=== PATIENT | female | born 1950 | race Caucasian/White ===

== ENCOUNTER → 2016-12-21 | Outpatient (CLI) | payer MEDICARE ==
[~2016-12-21] MED LIST: BIOT1000 PO; BOSWELLIA; CALCTAB70 PO; CARA0.5C; CROM4SOL2 EACH EYE; ESTR0.5T PO; FLUT1SPR22; GABA400C5 PO; LEVO-168 PO; LEVO.125 PO; MOBI15TA PO; MULTTAB67 PO; SLOWTAB PO; VITA100T15 PO; VITA500T PO; [UNRECOGNIZED DRUG - CODE] PO; [UNRECOGNIZED DRUG - OTHER]; [UNRECOGNIZED DRUG - OTHER]
[2016-12-21 12:05] LABS: AUTOMATED NEUTROPHIL # 5.4 TH/MM3 (1.8-7.7); BASOPHIL # 0.1 TH/MM3 (0-0.2); BASOPHIL % 0.8 % (0.0-2.0); EOSINOPHIL # 0.2 TH/MM3 (0-0.4); HEMATOCRIT 41.4 % (35.0-46.0); HEMO FLAGS DIFF FINAL; LYMPH % 22.6 % (9.0-44.0); LYMPHOCYTE # 1.8 TH/MM3 (1.0-4.8); MEAN CELL VOLUME 90.9 FL (80.0-100.0); MEAN CORPUSCULAR HEMOGLOBIN 30.2 PG (27.0-34.0); MEAN CORPUSCULAR HGB CONC 33.2 % (32.0-36.0); MONO % 8.5 % (0.0-8.0); NEUT % 66.1 % (16.0-70.0); PLATELET COUNT 238 TH/MM3 (150-450); RED BLOOD COUNT 4.56 MIL/MM3 (4.00-5.30); RED CELL DISTRIBUTION WIDTH 13.5 % (11.6-17.2); WHITE BLOOD COUNT 8.1 TH/MM3 (4.0-11.0)
[2016-12-21 12:09] LABS: BACTERIA, URINE MOD /hpf; BLOOD, URINE NEG (NEG); GLUCOSE,URINE NEG (NEG); KETONE, URINE NEG (NEG); NITRITE,URINE NEG (NEG); PH, URINE 6.5 (5.0-8.5); SQUAMOUS EPITHELIAL CELL URINE 2 /hpf (0-5); URINE COLOR YELLOW (YELLW/STRAW)
[2016-12-21 12:23] LABS: ANION GAP 5 MEQ/L (5-15); BICARBONATE 30.8 MEQ/L (21.0-32.0); BLOOD UREA NITROGEN 11 MG/DL (7-18); CHLORIDE 100 MEQ/L (98-107); GLOMERULAR FILTRATION RATE 99 ML/MIN (>89); GLUCOSE,FASTING 86 MG/DL (74-99); SODIUM (NA) 136 MEQ/L (136-145)
--- NOTE | 2016-12-21 12:45 | RADRPT ---
EXAM DATE/TIME: 12/21/2016 11:56 [facility] COMPARISON: No previous studies available for comparison. INDICATIONS : Evaluate for pneumonia, pneumothorax or communicable disease. Pre op for abdominal surgery. MEDICAL HISTORY : Hypothyroidism. Gastroesophageal reflux disease. Arthritis. CAD. Fibromyalgia. SURGICAL HISTORY : Cholecystectomy. Gastric bypass. Hysterectomy. Left total knee replacement. Angiograms. ENCOUNTER: Initial ACUITY: 1 day PAIN SCORE: 0/10 LOCATION: chest FINDINGS: PA and lateral views of the chest demonstrate the lungs to be symmetrically aerated without evidence of mass, infiltrate or effusion. The cardiomediastinal contours are unremarkable. Osseous structure s are intact. CONCLUSION: No acute disease. Isai Henriquez MD on December 21, 2016 at 12:43 Board Certified Radiologist. This report was verified electronically.
--- NOTE | 2016-12-22 11:16 | EKG ---
Date Performed: 12/21/2016 Time Performed: 11:04:03 PTAGE: 66 years EKG: Sinus rhythm POSSIBLE LEFT ATRIAL ENLARGEMENT LOW QRS VOLTAGE IN PRECORDIAL LEADS BORDERLINE ECG NO PREVIOUS TRACING DOCTOR: Lino Thompson Interpretating Date/Time 12/22/2016 11:15:15
== END ==
LOC: CPRE 10:36
PROVIDERS: ATTEND Obstetrics & Gynecology
DX: Z01.812 Encounter for preprocedural laboratory examination (principal); Z01.810 Encounter for preprocedural cardiovascular examination; Z01.811 Encounter for preprocedural respiratory examination; E55.9 Vitamin D deficiency, unspecified; R94.31 Abnormal electrocardiogram [ECG] [EKG]
CPT/HCPCS: 36415; 71020; 80048; 81001; 82306; 82607; 82746; 85025; 86850; 86900; 86901; 93005

== ENCOUNTER 2016-12-23 05:39 | Observation (INO) | payer MEDICARE ==
--- NOTE | 2016-12-21 17:41 | MH ---
cc: CHRISTIE BATRES MD DATE OF ADMISSION: 12/23/2016 DATE OF : 1950 CHIEF COMPLAINT: Significant stress urinary incontinence with some over active bladder symptomatology. Scheduled procedure is anterior repair with transobturator tape and cystoscopy. She understands that this typically does not address over active bladder that is for stress urinary incontinence. She has had a fairly complicated history. She has had a very distant hysterectomy in 1981. Prior to that she had section. She has undergone a rectovaginal repair of a fistula and partial colon resection in June of 2013. It is not a rectocele at this point that is causing most of her concern but rather a fairly significant cystocele and leakage of urine when she coughs, laughs or sneezes. There is most definitely though an overactive bladder component. SOCIAL HISTORY: She does not smoke, drink or use illicit drugs. She does have chronic constipation. Other additional surgeries are her gastric sleeve procedure and gallbladder in the past. She has hypothyroidism. MEDICATIONS: She takes ____ mics daily. Gabapentin 400 milligrams daily. Estradiol 0.5 milligrams daily. Duloxetine 60 milligrams daily. She is up-to-date on mammography, colonoscopy and bone density scan. PHYSICAL EXAMINATION: Well-developed white female, weight is 177, height 5'3", blood pressure 130/70. ALLERGIES: PENICILLIN. SULFA. She has no thyroid enlargement. Lungs: Clear. Heart: Regular. Breasts: Reassuring. Abdomen: Benign. Perineum is estrogenized. Vault is fairly well elevated. There is a mild apical descent. There is a third degree cystourethrocele with a positive Q-Tip test. Rectovaginal septum is not very thin and does not bulge out on rectal exam. She has no polyps or hemorrhoids of significance. Extremities: Unremarkable. IMPRESSION: At this time, symptomatic cystourethrocele, so the stress incontinence is compounding her overactive bladder. PLAN: The plan is to proceed with an anterior repair and a transobturator tape, and use Myrbetriq at least in the short term if not mcfp for the overactive bladder symptomatology. The risks, benefits, expectations, alternatives have been described in detail and she is scheduled for . MD MAURY Lowery/LALO /5:07 PM /5:22 PM
[~2016-12-23] VITALS: Ht 160 cm; Wt 92.8 kg
[~2016-12-23 05:39] MED LIST changes: -BOSWELLIA; -CARA0.5C; -FLUT1SPR22; -LEVO-168 PO; -MOBI15TA PO; -[UNRECOGNIZED DRUG - OTHER]; -[UNRECOGNIZED DRUG - OTHER]
[2016-12-23] MEDS ORDERED: ceFAZolin 2 GM PREMIX 50 ML IV SCH (06:15)
[2016-12-23 06:17] VITALS: BP 113/77; PULSE 86; RESP 18; TEMP 98.5; O2SAT 96
[2016-12-23] MEDS ORDERED: METOPROLOL TARTRATE 25 MG TAB PO PRN (06:45)
[2016-12-23] MEDS ORDERED: SODIUM CHLORID 0.9% 500 ML IV PRN (06:45)
[2016-12-23] MEDS ORDERED: POVIDONE IODINE 5% (ANTISEPSIS KIT) 4 APPLICATIONS EACH NARE PRN (06:45)
[2016-12-23] MEDS ORDERED: LACTATED RINGER'S 1000 ML IV PRN (06:45)
[2016-12-23] MEDS ORDERED: INSULIN HUMAN REGULAR 1,000 UNITS/10 ML VIAL SQ PRN (06:45)
[2016-12-23] MEDS ORDERED: CHLORHEXIDINE GLUCONATE 2 % 1 PACK (2 CLOTHS) TOPICAL PRN (06:45)
[2016-12-23] MEDS ORDERED: FAMOTIDINE 20 MG/2 ML VIAL ONE (07:02)
[2016-12-23] MEDS ORDERED: APREPITANT 40 MG CAP ONE (07:02)
[2016-12-23] MEDS ORDERED: ACETAMINOPHEN 1000 MG/100 ML VIAL IV ONE (07:02)
[2016-12-23] MEDS ORDERED: BUPIVACAINE/EPINEPHRINE 0.5% 50 ML VIAL ONE (07:08)
[2016-12-23] MEDS ORDERED: ESTROGENS CONJUGATED VAG CREA 15 APPL/30 GM TUBE ONE (07:08)
[2016-12-23] MEDS ORDERED: VASOPRESSIN INJ 20 UNITS/ML VIAL ONE (07:08)
[2016-12-23] MEDS ORDERED: MIDAZOLAM HCL 2 MG/2 ML VIAL ONE (07:11)
[2016-12-23] MEDS: LACTATED RINGER'S 1000 ML INJ 1,000 ML IV SCH (08:48)
[2016-12-23] MEDS ORDERED: fentaNYL CITRATE 250 MCG/5 ML AMP ONE (08:57)
--- NOTE | 2016-12-23 08:57 | PD.OP ---
Operative Report Date of Surgery: December 23, 2016 Preoperative Diagnosis: KRISTI and mild bulge Postoperative Diagnosis: same Procedure: anerior repair with TOT (solyx) and cystourethroscopy Anesthesia: GET Surgeon: Brittany Izquierdo Jd Edwards Consultant(s): Sanam Clements Operation and Findings: Brittany Pedraza MD December 23, 2016 08:57
[2016-12-23] MEDS ORDERED: oxyCODONE/ACETAMINOPHEN 5 MG/325 MG TAB PO PRN (09:00)
[2016-12-23] MEDS ORDERED: diphenhydrAMINE HCL 25 MG CAP PO PRN (09:00)
[2016-12-23] MEDS: SODIUM CHLORIDE 0.9% FLUSH 10 ML FLUSH IV FLUSH SCH ×2 (09:00→21:35)
[2016-12-23] MEDS ORDERED: ONDANSETRON HCL 4 MG/2 ML VIAL IVP PRN (09:00)
[2016-12-23] MEDS ORDERED: ZOLPIDEM TARTRATE 5 MG TAB PO PRN (09:00)
[2016-12-23] MEDS ORDERED: SODIUM CHLORIDE 0.9% FLUSH 10 ML FLUSH IV FLUSH PRN (09:00)
[2016-12-23] MEDS ORDERED: IBUPROFEN 600 MG TAB PO PRN (09:00)
--- NOTE | 2016-12-23 09:41 | HHI.DCPOC ---
Discharge Care Plan Report Symptoms to Your Doctor -Temperate above 100.5 degrees -Redness, of incision or excessive or foul smelling drainage -Unusual pain or calf pain -Increased vaginal bleeding -Painful or difficulty urinating -Feelings of extreme sadness or anxiety after 2 weeks Goals to Promote Your Health * To prevent worsening of your condition and complications * To maintain your health at the optimal level Directions to Meet Your Goals Take your medications as prescribed Follow your dietary instruction Follow activity as directed Ensure plenty of rest for recovery Drink fluids for hydration Keep your appointments as scheduled Take your immunizations and boosters as scheduled If your symptoms worsen call your PCP, if no PCP go to Urgent Care Center or Emergency Room Smoking is Dangerous to Your Health. Avoid second hand smoke Call the 24-hour crisis hotline for domestic abuse at Brittany Izquierdo MD December 23, 2016 09:41
[2016-12-23] MEDS ORDERED: LEVOTHYROXINE SODIUM 125 MCG TAB PO ONE (11:00)
--- NOTE | 2016-12-23 11:45 | MP ---
cc: GETACHEWBRITTANY MARTINEZ DATE OF 1950 DATE OF PROCEDURE December 23, 2016 PREOPERATIVE DIAGNOSES 1. Unacceptable stress urinary incontinence. 2. Mild overactive bladder. 3. Second-degree cystourethrocele. POSTOPERATIVE DIAGNOSES 1. Unacceptable stress urinary incontinence. 2. Mild overactive bladder. 3. Second-degree cystourethrocele. PROCEDURE 1. Transobturator tape using Solyx. 2. Classic anterior colporrhaphy with Ebony plication. 3. Cystourethroscopy. SURGEON MD Timbo CLAIM ANALYST Sanam Clements, third year medical student. FINDINGS Examination under anesthesia reveals a moderate cystocele and in the office she had a very positive Q-tip test. The apex of the vault is well elevated and, having had a repair for rectovaginal fistula three years ago, the posterior vault has no defect. The tissue is fairly well estrogenized. Subsequent to the tape placement the bladder was evaluated and there is no evidence of the iatrogenic injury or intrinsic pathology. There was ureteral flow from both right and left. The Putnam was replaced after the Ebony plication and anterior colporrhaphy. The skin was slightly trimmed, reapproximated and Estrace cream placed in the vault. Sponge, instrument and needle count were correct. Estimated blood loss was 50 cc. PROCEDURE The patient was identified as Ana Hernandez in [facility]. The procedure was reviewed, permits were checked. She was taken to the operating room, placed under general anesthesia in dorsal lithotomy position. Sequential stockings were on. She had received 1 gram of Ancef. She was prepped and draped in the usual sterile fashion and then the Putnam catheter placed sterilely. A time-out was performed with all in attendance and then the midline vaginal vault was instilled with Marcaine with epi and then the Bovie used to incise the midline. The vaginal mucosa was dissected off the bladder and urethra with some difficulty due to prior surgery but it was possible to reach underneath the pubic symphysis toward the axilla on either side and create a space for the transobturator tape. Using the Solyx system, a diaphragm tape was placed first on the patient's right, then left, against the urethra but without tension. Bleeding was negligible. At this point then the 70-degree scope was placed in the bladder with the findings as noted above and then the Putnam catheter replaced. Several mattress sutures were then placed and then the vaginal mucosa was trimmed slightly and reapproximate with interrupteds of Vicryl. Estrace vaginal cream was placed in the vault but no packing was placed. She was returned to dorsal supine position, awoken and taken to the recovery room in stable condition. Brittany Izquierdo MD PPC/SSB /9:01 AM /11:30 AM
[2016-12-23 12:00] VITALS: BP 113/75; PULSE 78; RESP 16; TEMP 97.7; O2SAT 97
[2016-12-23] MEDS ORDERED: ePHEDrine/NS 25 MG/5 ML SYR IV ONE (12:00)
[2016-12-23] MEDS ORDERED: NEOSTIGMINE 3 MG/3 ML SYR IV ONE (12:00)
[2016-12-23] MEDS ORDERED: PHENYLEPH/NS 1000 MCG/10 ML SYR IV ONE (12:00)
[2016-12-23] MEDS ORDERED: ONDANSETRON HCL 4 MG/2 ML VIAL IV PUSH ONE (12:00)
[2016-12-23] MEDS ORDERED: PROPOFOL 200 MG/20 ML AMP IV ONE (12:00)
[2016-12-23] MEDS: DOCUSATE SODIUM 100 MG CAP PO SCH ×2 (12:12→21:34)
[2016-12-23] MEDS: ACETAMINOPHEN/HYDROcodone 325 MG/5 MG TAB PO PRN ×3 (12:12→21:48)
[2016-12-23] MEDS ORDERED: GABAPENTIN 400 MG CAP PO SCH (13:00)
[2016-12-23] MEDS: GABAPENTIN 400 MG CAP PO SCH ×2 (14:01→21:34)
[2016-12-23 16:00] VITALS: BP 96/64; PULSE 81; RESP 16; TEMP 96.2; O2SAT 96
--- NOTE | 2016-12-23 18:50 | HHI.PR ---
Subjective Remarks Doing well, pain is well controlled, eating well. Objective Vital Signs Vital Signs Date Time Temp Pulse Resp B/P Pulse Ox O2 Delivery O2 Flow Rate FiO2 12/23/16 16:00 96.2 81 16 96/64 96 12/23/16 12:00 97.7 78 16 113/75 97 12/23/16 11:15 97.6 86 16 117/60 96 Room Air 12/23/16 11:00 89 14 108/56 98 12/23/16 10:30 88 12 103/61 98 12/23/16 10:15 82 14 109/62 99 12/23/16 10:00 86 14 105/62 99 12/23/16 09:45 76 14 103/57 99 12/23/16 09:30 79 15 106/55 100 12/23/16 09:15 80 16 100/54 98 12/23/16 09:00 79 20 112/70 100 Nasal Cannula 2 12/23/16 06:17 98.5 86 18 113/77 96 I/O 12/22/16 12/22/16 12/22/16 12/23/16 12/23/16 12/23/16 07:00 15:00 23:00 07:00 15:00 23:00 Intake Total 240 ml 904 ml Output Total 1907 ml Balance -1667 ml 904 ml Intake Oral 240 ml IV Total 904 ml Output Urine Total 1907 ml Objective Remarks Chest is clear, regular rate and rhythm. Abdomen is soft and non-distended. no CVAT urine clear peripad has moderate bleeding. Ext no CCE. A/P Assessment and Plan Night of surgery Doing well home in am post voiding trial if passes no wilson, if fails home with wilson and care instructions return to office tuesday for maren to do voiding trial if wilson left otherwise in two weeks Brittany Izquierdo MD December 23, 2016 18:50
[2016-12-23 20:55] VITALS: BP 93/58; PULSE 40; RESP 16; TEMP 97.1; O2SAT 95
[2016-12-24 00:55] VITALS: BP 101/62; PULSE 71; RESP 16; TEMP 96.3; O2SAT 96
[2016-12-24] MEDS: ACETAMINOPHEN/HYDROcodone 325 MG/5 MG TAB PO PRN ×2 (03:05→08:45)
[2016-12-24] MEDS: LACTATED RINGER'S 1000 ML INJ 1,000 ML IV SCH ×2 (03:13→03:14)
[2016-12-24 04:55] VITALS: BP 105/67; PULSE 67; RESP 15; TEMP 96.9; O2SAT 96
[2016-12-24 06:58] LABS: AUTOMATED NEUTROPHIL # 4.1 TH/MM3 (1.8-7.7); BASOPHIL # 0.1 TH/MM3 (0-0.2); BASOPHIL % 0.8 % (0.0-2.0); EOSINOPHIL # 0.3 TH/MM3 (0-0.4); EOSINOPHIL % 3.6 % (0.0-4.0); HEMATOCRIT 37.4 % (35.0-46.0); HEMO FLAGS DIFF FINAL; LYMPH % 29.6 % (9.0-44.0); LYMPHOCYTE # 2.2 TH/MM3 (1.0-4.8); MEAN CELL VOLUME 92.1 FL (80.0-100.0); MEAN CORPUSCULAR HEMOGLOBIN 30.8 PG (27.0-34.0); MEAN CORPUSCULAR HGB CONC 33.5 % (32.0-36.0); MONO % 9.1 % (0.0-8.0); NEUT % 56.9 % (16.0-70.0); PLATELET COUNT 207 TH/MM3 (150-450); RED BLOOD COUNT 4.07 MIL/MM3 (4.00-5.30); RED CELL DISTRIBUTION WIDTH 13.4 % (11.6-17.2); WHITE BLOOD COUNT 7.3 TH/MM3 (4.0-11.0)
[2016-12-24 07:00] VITALS: BP 119/76; PULSE 74; RESP 15; TEMP 96.3; O2SAT 94
[2016-12-24 07:28] LABS: BICARBONATE 33.2 MEQ/L (21.0-32.0); POTASSIUM 4.2 MEQ/L (3.5-5.1)
[2016-12-24] MEDS: SODIUM CHLORIDE 0.9% FLUSH 10 ML FLUSH IV FLUSH SCH (08:43)
[2016-12-24] MEDS: GABAPENTIN 400 MG CAP PO SCH (08:44)
[2016-12-24] MEDS: DOCUSATE SODIUM 100 MG CAP PO SCH (08:45)
[2016-12-24] MEDS ORDERED: ESTRADIOL 1 MG TAB PO SCH (09:00)
--- NOTE | 2016-12-24 09:17 | HHI.PR ---
Subjective Remarks Doing well, pain is well controlled, eating well. Passing flatus. Passed voiding trial Objective Vital Signs Vital Signs Date Time Temp Pulse Resp B/P Pulse Ox O2 Delivery O2 Flow Rate FiO2 12/24/16 07:00 96.3 74 15 119/76 94 12/24/16 04:55 96.9 67 15 105/67 96 12/24/16 00:55 96.3 71 16 101/62 96 12/23/16 20:55 97.1 40 16 93/58 95 12/23/16 16:00 96.2 81 16 96/64 96 12/23/16 12:00 97.7 78 16 113/75 97 12/23/16 11:15 97.6 86 16 117/60 96 Room Air 12/23/16 11:00 89 14 108/56 98 12/23/16 10:30 88 12 103/61 98 12/23/16 10:15 82 14 109/62 99 12/23/16 10:00 86 14 105/62 99 12/23/16 09:45 76 14 103/57 99 12/23/16 09:30 79 15 106/55 100 I/O 12/23/16 12/23/16 12/23/16 12/24/16 12/24/16 12/24/16 07:00 15:00 23:00 07:00 15:00 23:00 Intake Total 240 ml 1624 ml 480 ml Output Total 1907 ml 2420 ml 500 ml Balance -1667 ml 1624 ml -1940 ml -500 ml Intake Oral 240 ml 720 ml 480 ml IV Total 904 ml Output Urine Total 1907 ml 2420 ml 500 ml # Sanitary Pads 2 Pads Result Diagram: 12/24/16 0554 12/24/16 0554 Objective Remarks Chest is clear, regular rate and rhythm. Abdomen is soft and non-distended. no CVAT urine clear spotting. Ext no CCE. A/P Assessment and Plan POD 1 AP repair and tot doing well, passed voiding trial home today, f/u in 2 wk Iris Harris MD December 24, 2016 09:17 Iris Harris MD December 24, 2016 09:17
[2016-12-24 11:00] VITALS: BP 107/78; PULSE 78; RESP 15; TEMP 96.3; O2SAT 93
[2017-01-12] MEDS ORDERED: LEVO-168 PO (16:19)
== END 2016-12-24 11:40 | disposition home or self-care (01) ==
LOC: HSDC 05:39 → HSDI 08:55 → HOCA 11:30
PROVIDERS: ADMIT Obstetrics & Gynecology; ATTEND Obstetrics & Gynecology
DX: N39.3 Stress incontinence (female) (male) (principal); N32.81 Overactive bladder; N99.3 Prolapse of vaginal vault after hysterectomy; E03.9 Hypothyroidism, unspecified; K59.09 Other constipation; E78.5 Hyperlipidemia, unspecified; E55.9 Vitamin D deficiency, unspecified
CPT/HCPCS: 00860; 57240; 57288; 80048; 85025; 94150; C1771; G0378; J0131; J0690; J2250; J2370; J2405; J2710; J3010; J7120; J8501

== ENCOUNTER 2016-12-27 12:05 | Emergency (ER) | payer MEDICARE ==
[~2016-12-27] VITALS: Ht 160 cm; Wt 87.1 kg
[2016-12-27 12:07] VITALS: BP 121/86; PULSE 78; RESP 16; TEMP 98.1; O2SAT 98
[2016-12-27] MEDS ORDERED: SODIUM CHLORIDE 0.9% FLUSH 10 ML FLUSH IVF PRN (12:45)
[2016-12-27 12:49] LABS: AUTOMATED NEUTROPHIL # 6.3 TH/MM3 (1.8-7.7); BASOPHIL # 0.2 TH/MM3 (0-0.2); BASOPHIL % 2.5 % (0.0-2.0); EOSINOPHIL # 0.2 TH/MM3 (0-0.4); EOSINOPHIL % 2.1 % (0.0-4.0); HEMATOCRIT 41.3 % (35.0-46.0); HEMO FLAGS DIFF FINAL; LYMPH % 18.6 % (9.0-44.0); LYMPHOCYTE # 1.7 TH/MM3 (1.0-4.8); MEAN CELL VOLUME 90.2 FL (80.0-100.0); MEAN CORPUSCULAR HEMOGLOBIN 30.3 PG (27.0-34.0); MEAN CORPUSCULAR HGB CONC 33.7 % (32.0-36.0); MONO % 5.8 % (0.0-8.0); PLATELET COUNT 244 TH/MM3 (150-450); RED BLOOD COUNT 4.58 MIL/MM3 (4.00-5.30); RED CELL DISTRIBUTION WIDTH 13.1 % (11.6-17.2); WHITE BLOOD COUNT 8.9 TH/MM3 (4.0-11.0)
[2016-12-27 12:58] LABS: CHLORIDE 99 MEQ/L (98-107); SODIUM (NA) 135 MEQ/L (136-145)
[2016-12-27 13:01] LABS: ANION GAP 8 MEQ/L (5-15); BLOOD UREA NITROGEN 10 MG/DL (7-18)
[2016-12-27 13:02] LABS: APTT (PATIENT) 27.8 SEC (24.3-30.1); INTERNATIONAL NORMALIZED RATIO 0.9 RATIO; PROTHROMBIN TIME - PATIENT 10.3 SEC (9.8-11.6)
[2016-12-27 13:04] LABS: ALT (GPT) 25 U/L (10-53); AST (GOT) 46 U/L (15-37); GLOMERULAR FILTRATION RATE 89 ML/MIN (>89)
[2016-12-27 13:06] LABS: TOTAL BILIRUBIN ADULT 0.4 MG/DL (0.2-1.0)
[2016-12-27 13:07] LABS: ALKALINE PHOSPHATASE 123 U/L (45-117)
--- NOTE | 2016-12-27 13:20 | RADHPO ---
EXAM DATE/TIME: 12/27/2016 13:00 [facility] COMPARISON: No previous studies available for comparison. INDICATIONS : Left knee pain after fall. MEDICAL HISTORY : None. SURGICAL HISTORY : Total knee replacement, left. ENCOUNTER: Initial ACUITY: 1 day PAIN SCORE: 7/10 LOCATION: Left anterior knee FINDINGS: A standard 4 view examination of the left knee was obtained and demonstrates the patient is status po st arthroplasty. The femoral and tibial components are intact and in normal alignment. There are post operative changes involving the patella. There is no acute fracture. No focal soft tissue abnormality is identified. CONCLUSION: 1. No acute fracture or malalignment. 2. Status post arthroplasty. Shane Bourgeois MD on December 27, 2016 at 13:16 Board Certified Radiologist. This report was verified electronically.
--- NOTE | 2016-12-27 13:21 | RADHPO ---
EXAM DATE/TIME: 12/27/2016 13:03 [facility] COMPARISON: No previous studies available for comparison. INDICATIONS : Left hip pain after falling MEDICAL HISTORY : SURGICAL HISTORY : None. ENCOUNTER: Initial ACUITY: 1 day PAIN SCORE: 7/10 LOCATION: Left lateral hip FINDINGS: Examination of the left hip was performed with AP Pelvis. The primary and secondary trabecular patte rn of the femoral neck is intact. The hip joint is of normal width without significant sclerosis or bony hypertrophy. The acetabulum is grossly intact. CONCLUSION: Negative trauma study. Shane Bourgeois MD on December 27, 2016 at 13:18 Board Certified Radiologist. This report was verified electronically.
[2016-12-27 13:39] VITALS: O2SAT 98
--- NOTE | 2016-12-27 13:46 | RADHPO ---
EXAM DATE/TIME: 12/27/2016 13:16 [facility] COMPARISON: No previous studies available for comparison. INDICATIONS : Fall. Left frontal soft tissue swelling. RADIATION DOSE: 64.24 CTDIvol (mGy) MEDICAL HISTORY : None SURGICAL HISTORY : section. Cholecystectomy.Hysterectomy.Gastric bypass. ENCOUNTER: Initial ACUITY: 1 day PAIN SCALE: 5/10 LOCATION: Left frontal TECHNIQUE: Multiple contiguous axial images were obtained of the head. Using automated exposure control and adj ustment of the mA and/or kV according to patient size, radiation dose was kept as low as reasonably a chievable to obtain optimal diagnostic quality images. FINDINGS: CEREBRUM: The ventricles are normal for age. No evidence of midline shift, mass lesion, hemorrhage or acute in farction. No extra-axial fluid collections are seen. POSTERIOR FOSSA: The cerebellum and brainstem are intact. The 4th ventricle is midline. The cerebellopontine angle i s unremarkable. EXTRACRANIAL: The visualized portion of the orbits is intact. SKULL: The calvaria is intact. No evidence of skull fracture. There is soft tissue swelling over the left f rontal bone. CONCLUSION: Soft tissue swelling over the left frontal bone with no evidence of fracture or hemorrhage. Shane Bourgeois MD on December 27, 2016 at 13:44 Board Certified Radiologist. This report was verified electronically.
--- NOTE | 2016-12-27 13:47 | RADHPO ---
EXAM DATE/TIME: 12/27/2016 13:16 [facility] COMPARISON: No previous studies available for comparison. INDICATIONS : Fall. Pain. RADIATION DOSE: 25.68 CTDIvol (mGy) MEDICAL HISTORY : None SURGICAL HISTORY : section. Cholecystectomy.Hysterectomy.Gastric bypass ENCOUNTER: Initial ACUITY: 1 day PAIN SCORE: 4/10 LOCATION: facial TECHNIQUE: Volumetric scanning of the facial bones was performed. Using automated exposure control and adjustme nt of the mA and/or kV according to patient size, radiation dose was kept as low as reasonably achiev able to obtain optimal diagnostic quality images. FINDINGS: ORBITS: The orbital and infraorbital osseous structures are intact. The retroconal structures have a normal configuration. No radiopaque foreign bodies are seen. NASAL BONE: The nasal bone and maxillary spine are intact ZYGOMATIC ARCHES: Symmetric without evidence of fracture. SINUSES: The maxillary, ethmoid and frontal sinuses are intact. No air-fluid levels seen. NASAL CAVITY: The nasal septum is intact and midline. The lacrimal ducts are intact. SOFT TISSUES: No radiopaque foreign bodies seen. There is soft tissue swelling of the left frontal bone. INTRACRANIAL: No intracranial air seen. CRIBIFORM PLATE: Grossly intact. CONCLUSION: 1. Soft tissue swelling over the left frontal bone with no evidence of fracture. 2. The facial bones are intact in appearance. Shane Bourgeois MD on December 27, 2016 at 13:45 Board Certified Radiologist. This report was verified electronically.
--- NOTE | 2016-12-27 14:14 | RADHPO ---
EXAM DATE/TIME: 12/27/2016 13:16 [facility] COMPARISON: No previous studies available for comparison. INDICATIONS : Fall. Pain. RADIATION DOSE: 26.09 CTDIvol (mGy) MEDICAL HISTORY : None SURGICAL HISTORY : section. Cholecystectomy.Hysterectomy.Gastric bypass. ENCOUNTER: Initial ACUITY: 1 day PAIN SCALE: 5/10 LOCATION: neck TECHNIQUE: Volumetric scanning of the cervical spine was performed. Multiplanar reconstructions in the sagittal, coronal and oblique axial planes were performed. Using automated exposure control and adjustment o f the mA and/or kV according to patient size, radiation dose was kept as low as reasonably achievable to obtain optimal diagnostic quality images. FINDINGS: VERTEBRAE: No fracture is identified. ALIGNMENT: There is 3 mm of anterolisthesis of C3 on C4. Craniocervical junction and C1-C2 level demonstrate no acute finding. C2-C3: There is severe right facet arthrosis causing severe right neural foraminal narrowing. No canal steno sis or left neural foraminal narrowing is present. C3-C4: There is decreased disc height with minimal anterolisthesis. Severe right and mild left facet arthros is is present and there are right uncovertebral osteophytes. There is also a small central disc protr usion. No canal stenosis is present. There is severe right neural foraminal narrowing. C4-C5: There is severe right and mild left neural foraminal stenosis with fusion of the right facet joints. Endplate osteophytes are present anteriorly. A small central disc protrusion is present. There is no spinal canal stenosis or left neural foraminal narrowing. There is moderate right neural foraminal st enosis. C5-C6: There is decreased disc height with endplate osteophytes anteriorly and moderate to severe right face t arthrosis. There are also small bilateral uncovertebral osteophytes. Small posterior disc osteophyt e complex is present. There is no spinal canal stenosis but there is severe right neural foraminal na rrowing and mild left neural foraminal narrowing. C6-C7: There is decreased disc height with endplate osteophytes anteriorly and diffuse posterior disc osteop hyte complex. No canal stenosis or neural foraminal narrowing is seen. C7-T1: No disc herniation, canal stenosis, or neural foraminal stenosis is visualized. Visualized paraspinous structures demonstrate no acute finding. CONCLUSION: 1. No fracture or acute abnormality is identified. 2. 3 mm of anterolisthesis of C3 on C4 secondary to facet arthrosis. 3. Severe degenerative disc disease at C3-C4 through C6-C7. 4. Severe right facet arthrosis at C2-C3 through C5-C6. There is moderate to severe neural foraminal stenosis at all of these levels. Liang Stubbs MD on December 27, 2016 at 14:07 Board Certified Radiologist. This report was verified electronically.
--- NOTE | 2016-12-27 14:38 | PD ---
HPI Chief Complaint: Syncope/Near-Syncope Time Seen by Provider: 12:18 Travel History International Travel<30 days: No Contact w/Intl Traveler<30days: No Traveled to known affect area: No History of Present Illness HPI Patient is a 66-year-old female who comes in after syncopal episode today. She recently had bladder surgery and was discharged with prescriptions for pain medicine. She says she took one late last night, after not eating or drinking very much all day. She says she then got very hot all over, and went to take a Benadryl, but when she went to get water she passed out. She then slipped on the water and hit her head. She is complaining of pain to her head as well as her left hip and knee. She denies having any chest pain or shortness of breath. She says this has never happened before. She is concerned that she damaged her head and that is why she came in. She believes she probably passed out due to the pain medicine. PFSH Past Medical History Arthritis: Yes Cancer: No Cardiovascular Problems: No Diabetes: No Endocrine: No Gastrointestinal Disorders: Yes Glaucoma: No Genitourinary: No Hepatitis: No Hiatal Hernia: No Hypertension: No Immune Disorder: Yes (POSSIBLE LUPUS) Medical other: Yes (ARTHRITIS) Musculoskeletal: Yes (DISLOCATION IN R ARM,SHOULDER ) Neurologic: Yes (NERVE PAIN IN L ARM AND R SHOULDER, NECK PAIN) Psychiatric: No Reproductive: No Respiratory: No Thyroid Disease: Yes ?: Not : 2 Para: 2 Ovarian Cysts: Yes Tubal Ligation: Yes Past Surgical History Body Medical Devices: GASTRIC SLEEVE Section: Yes (2 C- SECTIONS) Gynecologic Surgery: Yes (2 C-SECTIONS, D&C, HYSTERECTOMY,) Hysterectomy: Yes (80S) Joint Replacement: Yes (L TOTAL KNEE) Pacemaker: No Thoracic Surgery: Yes (BREAST IMPLANTS) Social History Alcohol Use: Yes (1 DRINK A WEEK WINRE OR BEER) Tobacco Use: No Substance Use: No Allergies-Medications (Allergen,Severity, Reaction): Coded Allergies: Latex (Verified Allergy, Intermediate, Blisters , 12/27/16) Penicillin (Verified Allergy, Intermediate, Rash, 12/27/16) Rash all over Sulfa (Verified Allergy, Intermediate, Rash, 12/27/16) Rash all over Uncoded Allergies: Nail gel (Allergy, Intermediate, rash - red diffuse then solid, 01/09/10) Reported Meds & Prescriptions Reported Meds & Active Scripts Active Gabapentin 400 Mg Cap 3 Tab PO BID Synthroid (Levothyroxine Sodium) 125 Mcg Tab 125 Mcg PO DAILY Dispense Brand Name Synthroid Reported Vitamin C (Ascorbic Acid) 500 Mg Tab 500 Mg PO TID Boswellia Carmelina Extract (Boswellia Carmelina Extract (Bul) 1 Pow Pow Unknown Dose PO DAILY Cromolyn Opth Drops 4% Soln 1 Drop EACH EYE Q6H Calcium 600 + D (Calcium Carbonate-Vitamin D) 600-400 Mg-Unit Tab 1 Tab PO BID Slow-Mag (Magnesium Chloride-Calcium Carbonate) 71.5-119 Mg Tab 1 Tab PO DAILY Vitamin B12 (Cyanocobalamin) 100 Mcg Tab 100 Mcg PO DAILY Multiple Vitamin 1 Tab 1 Tab PO DAILY Biotin 1,000 Mcg Tab 1,000 Mg PO Estradiol 0.5 Mg Tab 0.5 Mg PO DAILY Review of Systems Except as stated in HPI: all other systems reviewed are Neg General / Constitutional: No: Fever, Chills Eyes: No: Blurred Vision HENT: Positive: Headaches, No: Lightheadedness Cardiovascular: No: Chest Pain or Discomfort Respiratory: No: Shortness of Breath Gastrointestinal: No: Nausea, Vomiting Musculoskeletal: Positive: Pain Skin: No Rash, No Change in Pigmentation Neurologic: No: Weakness, Dizziness Physical Exam Narrative GENERAL: Awake and alert, in no acute distress. SKIN: Focused skin assessment warm/dry. HEAD: Atraumatic. Normocephalic. Hematoma to the left side of forehead. EYES: Pupils equal and round. No scleral icterus. Extraocular movements intact. ENT: Mucous membranes pink and moist. NECK: Trachea midline. No JVD. No cervical spine tenderness. CARDIOVASCULAR: Regular rate and rhythm. No murmur appreciated. RESPIRATORY: No accessory muscle use. Clear to auscultation. Breath sounds equal bilaterally. GASTROINTESTINAL: Abdomen soft, non-tender, nondistended. MUSCULOSKELETAL: No obvious deformities. No clubbing. No cyanosis. No edema. Tender to palpation of the left hip as well as the left knee. Full range of motion of the hip and knee. NEUROLOGICAL: Awake and alert. No obvious cranial nerve deficits. Motor grossly within normal limits. Normal speech. PSYCHIATRIC: Appropriate mood and affect; insight and judgment normal. Data Data Last Documented VS Vital Signs Date Time Temp Pulse Resp B/P Pulse Ox O2 Delivery O2 Flow Rate FiO2 12/27/16 14:57 84 18 119/84 98 Room Air 12/27/16 12:07 98.1 Orders Electrocardiogram (12/27/16 12:33) Complete Blood Count With Diff (12/27/16 12:33) Comprehensive Metabolic Panel (12/27/16 12:33) Troponin I (12/27/16 12:33) Act Partial Throm Time (Ptt) (12/27/16 12:33) Prothrombin Time / Inr (Pt) (12/27/16 12:33) Ct Brain W/O Iv Contrast(Rout) (12/27/16 12:33) Ct Cerv Spine W/O Contrast (12/27/16 12:33) Ecg Monitoring (12/27/16 12:33) Iv Access Insert/Monitor (12/27/16 12:33) Oximetry (12/27/16 12:33) Sodium Chloride 0.9% Flush (Ns Flush) (12/27/16 12:45) Ct Facial Bones W/O Iv Cont (12/27/16 ) Knee, Complete (4vws) (12/27/16 ) Hip, Uni(Ap&Lat) W Ap Pelvis (12/27/16 ) Labs Laboratory Tests Test 12/27/16 12:44 White Blood Count 8.9 TH/MM3 Red Blood Count 4.58 MIL/MM3 Hemoglobin 13.9 GM/DL Hematocrit 41.3 % Mean Corpuscular Volume 90.2 FL Mean Corpuscular Hemoglobin 30.3 PG Mean Corpuscular Hemoglobin 33.7 % Concent Red Cell Distribution Width 13.1 % Platelet Count 244 TH/MM3 Mean Platelet Volume 8.4 FL Neutrophils (%) (Auto) 71.0 % Lymphocytes (%) (Auto) 18.6 % Monocytes (%) (Auto) 5.8 % Eosinophils (%) (Auto) 2.1 % Basophils (%) (Auto) 2.5 % Neutrophils # (Auto) 6.3 TH/MM3 Lymphocytes # (Auto) 1.7 TH/MM3 Monocytes # (Auto) 0.5 TH/MM3 Eosinophils # (Auto) 0.2 TH/MM3 Basophils # (Auto) 0.2 TH/MM3 CBC Comment DIFF FINAL Differential Comment Prothrombin Time 10.3 SEC Prothromb Time International 0.9 RATIO Ratio Activated Partial 27.8 SEC Thromboplast Time Sodium Level 135 MEQ/L Potassium Level 5.0 MEQ/L Chloride Level 99 MEQ/L Carbon Dioxide Level 28.0 MEQ/L Anion Gap 8 MEQ/L Blood Urea Nitrogen 10 MG/DL Creatinine 0.66 MG/DL Estimat Glomerular Filtration 89 ML/MIN Rate Random Glucose 97 MG/DL Calcium Level 9.2 MG/DL Total Bilirubin 0.4 MG/DL Aspartate Amino Transf 46 U/L (AST/SGOT) Alanine Aminotransferase 25 U/L (ALT/SGPT) Alkaline Phosphatase 123 U/L Troponin I LESS THAN 0.02 NG/ML Total Protein 7.2 GM/DL Albumin 3.2 GM/DL [facility] Medical Decision Making Medical Screen Exam Complete: Yes Emergency Medical Condition: Yes Medical Record Reviewed: Yes Interpretation(s) ECG shows normal sinus rhythm at 68, no ST elevation or depression, normal intervals. Differential Diagnosis Syncope versus adverse drug reaction versus ICH versus concussion versus dehydration Narrative Course Patient is a 66-year-old female comes in after she fell on her head. Exam shows hematoma to the left side of forehead. There are no neurologic abnormalities. IV established, labs sent. Labs show no acute abnormalities. Head, C-spine performed show no acute abnormalities. X-ray of the left hip and knee performed show no acute abnormalities. Patient advised to use ice. Advised to be careful when taking narcotic pain medicine. Patient offered admission, told that we cannot be sure her syncope is not caused by arrhythmia or carotid artery stenosis or some other dangerous etiology. She understands these risks, but says she would like to go home. She says that she'll follow-up with her doctor and return if she has any issues. Diagnosis Primary Impression: Head injury Qualified Code: S09.90XA - Head injury, initial encounter Additional Impression: Syncope Qualified Code: R55 - Syncope, unspecified syncope type Patient Instructions: General Instructions, Head Injury (ED), Syncope (ED) Additional Instructions: Be careful when taking narcotic pain medicine. Apply ice to your head. Return if you have any worsening symptoms. Follow up with your doctor. Disposition: 01 DISCHARGE HOME Condition: Stable Linsey Palomino MD December 27, 2016 14:38
[2016-12-27 14:57] VITALS: BP 119/84; PULSE 84; RESP 18; O2SAT 98
--- NOTE | 2016-12-28 15:18 | EKG ---
Date Performed: 12/27/2016 Time Performed: 13:46:34 PTAGE: 66 years EKG: Sinus rhythm Low QRS voltages in precordial leads Borderline ECG Compared to prior tracing no significant change PREVIOUS TRACING : 12/21/2016 11.04 DOCTOR: Maricruz Valerio Interpretating Date/Time 12/28/2016 15:18:25
[2017-01-12] MEDS ORDERED: LEVO-168 PO (16:19)
== END 2016-12-27 14:59 | disposition home or self-care (01) ==
LOC: PHED 12:05
DX: S00.83XA Contusion of other part of head, initial encounter (principal); R55 Syncope and collapse; W01.0XXA Fall on same level from slipping, tripping and stumbling without subsequent striking against object, initial encounter; Y93.01 Activity, walking, marching and hiking; Y92.9 Unspecified place or not applicable; Y99.9 Unspecified external cause status
CPT/HCPCS: 70450; 70486; 72125; 73502; 73564; 80053; 84484; 85025; 85610; 85730; 93005; 99285

== ENCOUNTER → 2017-08-17 | Outpatient (CLI) | payer MEDICARE ==
[~2017-08-17] MED LIST changes: +BIOT10TA PO; +CALC600C3 PO; +CYAN100 PO; +DOXY100C PO; +FISHCAP4 PO; +GAVICHW CHEW; +MELO15TA20 PO; +VITA1000 PO; -VITA100T15 PO; +VITA500T83 PO; +ZOFR8TAB4 SL; +ZOSTINJ SQ; +[UNRECOGNIZED DRUG - CODE] EACH EYE
[2017-08-17 12:24] LABS: AUTOMATED NEUTROPHIL # 5.8 TH/MM3 (1.8-7.7); BASOPHIL # 0.1 TH/MM3 (0-0.2); BASOPHIL % 0.9 % (0.0-2.0); EOSINOPHIL # 0.4 TH/MM3 (0-0.4); EOSINOPHIL % 4.6 % (0.0-4.0); HEMATOCRIT 41.5 % (35.0-46.0); HEMOGLOBIN 13.8 GM/DL (11.6-15.3); LYMPH % 22.2 % (9.0-44.0); MEAN CELL VOLUME 92.7 FL (80.0-100.0); MEAN CORPUSCULAR HEMOGLOBIN 30.8 PG (27.0-34.0); MEAN CORPUSCULAR HGB CONC 33.3 % (32.0-36.0); MEAN PLATELET VOLUME 9.4 FL (7.0-11.0); MONO % 7.4 % (0.0-8.0); MONOCYTE # 0.7 TH/MM3 (0-0.9); NEUT % 64.9 % (16.0-70.0); PLATELET COUNT 232 TH/MM3 (150-450); RED BLOOD COUNT 4.48 MIL/MM3 (4.00-5.30); RED CELL DISTRIBUTION WIDTH 13.3 % (11.6-17.2); WHITE BLOOD COUNT 8.8 TH/MM3 (4.0-11.0)
[2017-08-17 12:40] LABS: BACTERIA, URINE RARE /hpf; BILIRUBIN, URINE NEG (NEG); BLOOD, URINE NEG (NEG); GLUCOSE,URINE NEG (NEG); KETONE, URINE NEG (NEG); MUCUS URINE FEW /lpf (OCC); NITRITE,URINE NEG (NEG); SQUAMOUS EPITHELIAL CELL URINE 1 /hpf (0-5); URINE COLOR YELLOW (YELLW/STRAW); URINE LEUKOCYTE ESTERASE NEG (NEG)
[2017-08-17 12:51] LABS: BICARBONATE 28.3 MEQ/L (21.0-32.0); CALCIUM 8.6 MG/DL (8.5-10.1); CREATININE 0.53 MG/DL (0.50-1.00)
== END ==
LOC: CPRE 10:56
PROVIDERS: ATTEND Obstetrics & Gynecology
DX: Z01.812 Encounter for preprocedural laboratory examination (principal); T83.712A Erosion of implanted urethral mesh to surrounding organ or tissue, initial encounter; N39.3 Stress incontinence (female) (male)
CPT/HCPCS: 36415; 80048; 81001; 85025; 86850; 86900; 86901

== ENCOUNTER 2017-08-18 07:57 | Observation (INO) | payer MEDICARE ==
--- NOTE | 2017-08-17 14:46 | MH ---
cc: CHRISTIE BATRES DATE OF ADMISSION: 08/18/2017 1950 SCHEDULED PROCEDURE Excision of old TOT, implantation of new transobturator tape and cystocele repair. HISTORY OF PRESENT CONDITION The patient is a 66-year-old white female, para 2, status post a distant hysterectomy, who in December of 2016 underwent a transobturator tape placement and cystocele repair. She apparently had a severe fall twice in the postoperative week that she believes may have been related to her opioid pain medication. Subsequent to that she did not really identify any improvement in her incontinence and at the last visit was noted to have a small area of erosion of the tape into the vaginal mucosa. Repeat evaluation this week showed that area had extended considerably. She would like to resume intercourse and this is prohibitive with the mesh in place. She would also like to achieve better continence than the initial tape provided. She is also on oral estrogen and most recently has had an Estring in place. I do not think that ___ the area but it is possible. She takes Synthroid for hypothyroidism, Duloxetine for mild depression, Gabapentin 400 mg b.i.d. She does not smoke, drink or use illicit drugs. She has no problem with her bowels and has normal sphincter tone. She has no dysuria, pyuria, hematuria and other than the stress urinary incontinence does not have significant symptoms. She does not have nocturia. PHYSICAL EXAMINATION VITAL SIGNS: She is 5 feet 3 inches. Her weight is 203. Her BMI is 36. Her blood pressure is 130/80. ALLERGIES: She has allergies to PENICILLIN WHICH IS A RASH, AND TO SULFA. NECK: She has no thyroid enlargement. LUNGS: Her lungs are clear to auscultation. HEART: Rate and rhythm are regular. BREASTS: Without dominant mass. ABDOMEN: No hepatosplenomegaly. No CVA tenderness. Moderate pannus. PELVIC: Perineum is estrogenized. Vault is well-elevated approximately 1 inch portion of the Solyx tape is apparent without mucosa overlying in the midline. This seems to be several inches from where the Estring is above, but that does not account for where the Estring is when she is walking and upright. The vagina is otherwise healthy and estrogenized. GENITOURINARY: Urine is negative for red blood cells or infection. RECTAL: She had normal sphincter tone and guaiac is negative. EXTREMITIES: Unremarkable. IMPRESSION Superficial erosion of a Solyx transobturator tape into the vaginal vault with less than a desirable success with transobturator tape of December 2016. We plan to remove the eroded portion of the tape and then place a second tape behind that. The patient has been appraised in detail of risks of not obtaining her desired result, having continued incontinence or worsening incontinence, developing urge incontinence, infection, complications of anesthesia and medication up to including . She has signed consents. She was given [place] which she believes that she has handled in the past quite well, instead of Percocet which we believe caused her to fall and she is scheduled for morning. Christie Batres MD PPC/TLL /1:43 PM /2:04 PM
[~2017-08-18] VITALS: Ht 160 cm; Wt 90.7 kg
[~2017-08-18 07:57] MED LIST changes: -BIOT1000 PO; -CALCTAB70 PO; -DOXY100C PO; -FISHCAP4 PO; -GAVICHW CHEW; -VITA1000 PO; -VITA500T PO; -ZOFR8TAB4 SL; -ZOSTINJ SQ
[2017-08-18] MEDS ORDERED: CHLORHEXIDINE GLUCONATE 2 % 1 PACK (2 CLOTHS) TOPICAL PRN (08:45)
[2017-08-18] MEDS ORDERED: POVIDONE IODINE 5% (ANTISEPSIS KIT) 4 APPLICATIONS EACH NARE PRN (08:45)
[2017-08-18] MEDS ORDERED: SODIUM CHLORID 0.9% 500 ML IV PRN (08:45)
[2017-08-18] MEDS ORDERED: LACTATED RINGER'S 1000 ML IV PRN (08:45)
[2017-08-18] MEDS ORDERED: METOPROLOL TARTRATE 25 MG TAB PO PRN (08:45)
[2017-08-18] MEDS ORDERED: ceFAZolin 2 GM PREMIX 50 ML IV SCH (08:45)
[2017-08-18] MEDS ORDERED: FISHCAP4 PO (08:59)
[2017-08-18] MEDS ORDERED: VITA1000 PO (08:59)
[2017-08-18] MEDS ORDERED: APREPITANT 40 MG CAP ONE (09:34)
[2017-08-18] MEDS ORDERED: BUPIVACAINE/EPINEPHRINE 0.25% PF 30 ML VIAL ONE (09:43)
[2017-08-18] MEDS ORDERED: ACETAMINOPHEN 1000 MG/100 ML 100 ML IV ONE (11:12)
[2017-08-18] MEDS ORDERED: ESTROGENS CONJUGATED VAG CREA 15 APPL/30 GM TUBE VAGINAL ONE (11:35)
[2017-08-18] MEDS ORDERED: DO NOT ADM ANY ANTICOAGULANT DRUGS PRN (11:36)
[2017-08-18] MEDS ORDERED: MIDAZOLAM HCL 2 MG/2 ML VIAL ONE (11:41)
[2017-08-18] MEDS ORDERED: LACTATED RINGER'S 1000 ML INJ 1,000 ML IV SCH (11:48)
--- NOTE | 2017-08-18 11:55 | PD.OP ---
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
[2017-08-18] MEDS ORDERED: LIDOCAINE HCL 1% PF 5 ML SYRINGE OTHER ONE (12:00)
[2017-08-18] MEDS ORDERED: LORazepam 0.5 MG TAB PO PRN (12:00)
[2017-08-18] MEDS ORDERED: ROCURONIUM INJ 50 MG/5 ML SYRINGE IV PUSH ONE (12:00)
[2017-08-18] MEDS ORDERED: oxyCODONE/ACETAMINOPHEN 5 MG/325 MG TAB PO PRN (12:00)
[2017-08-18] MEDS ORDERED: PHENYLEPH/NS 1000 MCG/10 ML SYR IV ONE (12:00)
[2017-08-18] MEDS ORDERED: diphenhydrAMINE HCL 25 MG CAP PO PRN (12:00)
[2017-08-18] MEDS ORDERED: ZOLPIDEM TARTRATE 5 MG TAB PO PRN (12:00)
[2017-08-18] MEDS: DOCUSATE SODIUM 100 MG CAP PO SCH ×2 (12:00→23:10)
[2017-08-18] MEDS ORDERED: PROMETHAZINE HCL 25 MG TAB PO PRN (12:00)
[2017-08-18] MEDS ORDERED: SODIUM CHLORIDE 0.9% FLUSH 10 ML FLUSH IV FLUSH PRN (12:00)
[2017-08-18] MEDS ORDERED: ONDANSETRON HCL 4 MG/2 ML VIAL IVP PRN (12:00)
[2017-08-18] MEDS ORDERED: GLYCOPYRROLATE 1 MG/5 ML SYRINGE IV PUSH ONE (12:00)
[2017-08-18] MEDS ORDERED: NEOSTIGMINE 5 MG/5 ML SYRINGE IV PUSH ONE (12:00)
[2017-08-18] MEDS ORDERED: PROPOFOL 200 MG/20 ML AMP IV ONE (12:00)
[2017-08-18] MEDS ORDERED: DEXAMETHASONE SOD PHOS 4 MG/ML VIAL IV ONE (12:00)
[2017-08-18] MEDS ORDERED: ONDANSETRON HCL 4 MG/2 ML VIAL IV ONE (12:00)
[2017-08-18] MEDS: GABAPENTIN 400 MG CAP PO SCH ×2 (13:00→18:39)
[2017-08-18 13:02] VITALS: BP 114/67; PULSE 73; RESP 18; TEMP 97.9; O2SAT 92
[2017-08-18 16:00] VITALS: BP_SYST 107; BP_SYST 134; BP_DIAS 55; BP_DIAS 72; PULSE 104; PULSE 85; RESP 18; TEMP 98; TEMP 98.4; O2SAT 93; O2SAT 97
[2017-08-18] MEDS: oxyCODONE/ACETAMINOPHEN 5 MG/325 MG TAB PO PRN ×2 (18:45→23:11)
[2017-08-18] MEDS: IBUPROFEN 600 MG TAB PO PRN (18:45)
[2017-08-18 20:00] VITALS: BP 105/67; PULSE 78; RESP 20; TEMP 98.2; O2SAT 98
[2017-08-18] MEDS ORDERED: SODIUM CHLORIDE 0.9% FLUSH 10 ML FLUSH IV FLUSH SCH (21:00)
[2017-08-19] VITALS: BP 100/55; PULSE 63; RESP 18; TEMP 98.5; O2SAT 98
[2017-08-19 04:00] VITALS: BP 131/93; PULSE 68; RESP 18; TEMP 97.9; O2SAT 97
[2017-08-19] MEDS: IBUPROFEN 600 MG TAB PO PRN (05:26)
[2017-08-19] MEDS: oxyCODONE/ACETAMINOPHEN 5 MG/325 MG TAB PO PRN (05:27)
[2017-08-19 05:53] LABS: AUTOMATED NEUTROPHIL # 11.8 TH/MM3 (1.8-7.7); BASOPHIL % 0.1 % (0.0-2.0); HEMATOCRIT 38.9 % (35.0-46.0); HEMOGLOBIN 12.8 GM/DL (11.6-15.3); LYMPH % 9.9 % (9.0-44.0); LYMPHOCYTE # 1.4 TH/MM3 (1.0-4.8); MEAN CELL VOLUME 93.2 FL (80.0-100.0); MEAN CORPUSCULAR HEMOGLOBIN 30.6 PG (27.0-34.0); MEAN CORPUSCULAR HGB CONC 32.8 % (32.0-36.0); MEAN PLATELET VOLUME 9.5 FL (7.0-11.0); MONO % 4.1 % (0.0-8.0); MONOCYTE # 0.6 TH/MM3 (0-0.9); NEUT % 85.9 % (16.0-70.0); PLATELET COUNT 213 TH/MM3 (150-450); RED BLOOD COUNT 4.18 MIL/MM3 (4.00-5.30); RED CELL DISTRIBUTION WIDTH 13.5 % (11.6-17.2); WHITE BLOOD COUNT 13.7 TH/MM3 (4.0-11.0)
[2017-08-19] MEDS ORDERED: LEVOTHYROXINE SODIUM 125 MCG TAB PO SCH (06:00)
[2017-08-19 06:12] LABS: BICARBONATE 27.2 MEQ/L (21.0-32.0); CALCIUM 8.4 MG/DL (8.5-10.1); CREATININE 0.74 MG/DL (0.50-1.00)
[2017-08-19 08:20] VITALS: BP 113/66; PULSE 66; RESP 18; TEMP 98.3; O2SAT 98
[2017-08-19] MEDS: GABAPENTIN 400 MG CAP PO SCH (08:50)
[2017-08-19] MEDS ORDERED: ESTRADIOL 1 MG TAB PO SCH (09:00)
[2017-08-19] MEDS ORDERED: DULoxetine HCl DR 60 MG CAP PO SCH (09:00)
--- NOTE | 2017-08-19 09:14 | HHI.OB ---
Subjective Post Operative Day: 1 Remarks doing great voided no bleeding minimal pain questions answered Objective Vitals/I&O Vital Signs Date Time Temp Pulse Resp B/P (MAP) Pulse Ox O2 Delivery O2 Flow Rate FiO2 08/19/17 08:20 98.3 66 18 113/66 (82) 98 08/19/17 04:00 97.9 68 18 131/93 (106) 97 08/19/17 00:30 18 08/19/17 00:00 98.5 63 18 100/55 (70) 98 08/18/17 20:00 98.2 78 20 105/67 (80) 98 08/18/17 16:00 98.4 85 18 134/72 (92) 93 08/18/17 13:02 97.9 73 18 114/67 (83) 92 08/18/17 12:15 97.7 73 14 104/55 (71) 93 Room Air 08/18/17 12:00 73 14 126/66 (86) 97 Nasal Cannula 1 08/18/17 11:45 75 14 121/57 (78) 96 Nasal Cannula 2 08/18/17 11:36 97.7 87 14 111/58 (75) 95 Nasal Cannula 3 Intake & Output 08/19/17 08/19/17 07:00 19:00 Intake Total 2460 ml Output Total 1800 ml 100 ml Balance 660 ml -100 ml Intake Oral 960 ml IV Total 1500 ml Output Urine Total 1800 ml 100 ml Result Diagram: 08/19/17 0505 08/19/17 0505 Objective Remarks GENERAL: Well-nourished, well-developed patient. CARDIOVASCULAR: Regular rate and rhythm without murmurs, gallops, or rubs. RESPIRATORY: Breath sounds equal bilaterally. No accessory muscle use. ABDOMEN/GI: Abdomen soft, non-tender, bowel sounds present. Incision: Clean, dry and intact. Fundus: Firm, non-tender at umbilicus. GENITOURINARY: Light to moderate bleeding. EXTREMITIES: No cyanosis or edema, non-tender, without signs of DVT. Medications and IVs Current Medications Medications (Trade) Dose Ordered Sig/Miguel Route Start Time Stop Time Status Last Admin Lactated Ringer's 1,000 ml @ 30 mls/hr Q24H PRN IV 08/18/17 08:45 08/21/17 08:44 08/18/17 08:45 Sodium Chloride 500 ml @ 30 mls/hr [id number] PRN IV 08/18/17 08:45 08/21/17 08:44 (Lopressor) 25 mg EGG [employer] WORKER PRN PO 08/18/17 08:45 08/21/17 08:44 (Betadine 5% Antisepsis Kit) 1 applic EGG [employer] WORKER PRN EACH NARE 08/18/17 08:45 08/21/17 08:44 (Chlorhexidine 2% Cloth) 3 pack E[employer] WORKER PRN TOPICAL 08/18/17 08:45 08/21/17 08:44 08/18/17 08:00 Cefazolin Sodium/ Dextrose 50 ml @ 100 mls/hr E[employer] WORKER IV 08/18/17 08:45 08/21/17 08:44 08/18/17 10:55 Lactated Ringer's 1,000 ml @ 125 mls/hr Q8H IV 08/18/17 11:48 08/18/17 11:48 (NS Flush) 2 ml UNSCH PRN IV FLUSH 08/18/17 12:00 (NS Flush) 2 ml BID IV FLUSH 08/18/17 21:00 (Motrin) 600 mg Q6H PRN PO 08/18/17 12:00 08/19/17 05:26 (Percocet 5-325 Mg) 1 tab Q4H PRN PO 08/18/17 12:00 (Percocet 5-325 Mg) 2 tab Q4H PRN PO 08/18/17 12:00 08/19/17 05:27 (Benadryl) 25 mg Q6H PRN PO 08/18/17 12:00 (Zofran Inj) 4 mg Q6H PRN IVP 08/18/17 12:00 (Phenergan) 25 mg Q6H PRN PO 08/18/17 12:00 (Colace) 100 mg Q12H PO 08/18/17 12:00 08/18/17 23:10 (Ambien) 5 mg HS PRN PO 08/18/17 12:00 08/18/17 23:17 (Ativan) 0.25 mg Q8H PRN PO 08/18/17 12:00 (Synthroid) 125 mcg DAILY@0600 PO 08/19/17 06:00 08/19/17 06:21 (Neurontin) 400 mg TID PO 08/18/17 13:00 08/19/17 08:50 (Estradiol) 2 mg DAILY PO 08/19/17 09:00 08/19/17 08:50 (Cymbalta Dr) 60 mg DAILY PO 08/19/17 09:00 08/19/17 08:50 Miscellaneous Information ALL NURSING DEPARTME... UNSCH PRN .XX 08/18/17 11:36 08/19/17 11:35 Assessment/Plan Discharge Planning ready for discharge today Brittany Izquierdo MD Aug 19, 2017 09:14
[2017-08-19] MEDS ORDERED: ZOFR8TAB4 SL (09:16)
[2017-08-19] MEDS ORDERED: GAVICHW CHEW (09:17)
--- NOTE | 2017-08-19 09:17 | HHI.DCPOC ---
Discharge Care Plan Report Symptoms to Your Doctor -Temperature above 100.5 degrees -Redness, of incision or excessive or foul smelling drainage -Unusual pain or calf pain -Increased vaginal bleeding -Painful or difficulty urinating -Feelings of extreme sadness or anxiety after 2 weeks Goals to Promote Your Health * To prevent worsening of your condition and complications * To maintain your health at the optimal level Directions to Meet Your Goals Take your medications as prescribed Follow your dietary instruction Follow activity as directed Ensure plenty of rest for recovery Drink fluids for hydration Keep your appointments as scheduled Take your immunizations and boosters as scheduled If your symptoms worsen call your PCP, if no PCP go to Urgent Care Center or Emergency Room Smoking is Dangerous to Your Health. Avoid second hand smoke Call the 24-hour crisis hotline for domestic abuse at Brittany Izquierdo MD Aug 19, 2017 09:17
--- NOTE | 2017-08-22 07:03 | MP ---
cc: BRITTANY BATRES MD DATE OF SURGERY: 08/18/2017 DATE OF : 1950. PREOPERATIVE DIAGNOSIS: Recurrent / persistent stress urinary incontinence erosion of the trans obturator sling into the vaginal vault. POSTOPERATIVE DIAGNOSIS Recurrent / persistent stress urinary incontinence erosion of the trans obturator sling into the vaginal vault. PROCEDURE: Excision of eroded portion of trans obturator tape, placement of second trans obturator tape more proximal, cystourethroscopy and cystocele repair. SURGEON: Brittany Batres MD. ANESTHESIA General endotracheal SCRIBING MACHINE OPERATOR: OR staff FINDINGS An approximately two to three centimeter portion of previous Solex mesh was eroded into the vaginal vault just 2 cm below the urethra. There was no evidence of infection. No significant scarring or granulation. The urethra was descending behind this tape and the bladder was also. A portion of the tape that was of visible was easily excised and then a repeat cystocele and placement of trans obturator tape for performed. The cystoscopy showed a healthy bladder with normal flow from both ureteral orifices and no evidence of other pathology or the iatrogenic injury. There was no old or new tape and the bladder. Bleeding was 25 cc. Sponge, instrument, needle count were correct. She tolerated the procedure well and the recovery room stable. PROCEDURE The patient was identified as Ana Barbosa, her permit was reviewed in holding. She was taken to the operating room, placed under general endotracheal anesthesia in the dorsal lithotomy position. She had sequential stockings on. She was prepped and draped in the usual sterile fashion. She had 2 grams of Ancef IV prior to the incision. A time-out was performed with all in attendance. An examination under anesthesia was performed. The tape was grasped with an Allis and the mucosa on either side slightly undermine and the tape that was visible was removed. Then a infiltration of the entire anterior vaginal mucosa with Marcaine with epinephrine was performed and a midline incision was made from where the initial tape was down to the level of apex. This vaginal mucosa was then gently placed on traction with dialysis and dissected off the bladder down to the level of the apex. A tunnel was bluntly created without bleeding on both sides up underneath the pubic symphysis directed toward each axilla of the patient and then the sling was placed on its introducer and placed on the urethra just proximal to the bladder some distance from the initial sling, this was placed flush against the urethra but without tension. There was no bleeding from this. A 30 degree cystoscope was placed into the bladder and the bladder was evaluated completely 360 degrees. Both ureteral orifices were identified and ureteral flow was seen. There was no evidence of bladder or urethral injury or other pathology. The scope was removed and replaced with the [place] and then multiple sutures were used of chromic to plicate and elevate the bladder. A minimal amount of that vaginal mucosa was trimmed from the left side of the field. The right side was very thin and because of the thinness of this tissue multiple interrupts were placed with overlap of the edges to promote a thickness of the mucosa rather than put tension on the actual incision line. Where the new tape had been placed there was significant thicker mucosa and no distress on the suture line at all. After the indirectives were placed Premarin vaginal cream was placed into the vault without packing. Two small sebaceous cysts on the labia were then just opened and expressed she was placed in dorsal supine position, awoken and taken to the recovery room in stable condition. MD MAURY Lowery/vera /11:40 AM /6:47 AM
== END 2017-08-19 10:42 | disposition home or self-care (01) ==
LOC: HSDC 07:57 → HSDI 11:53 → H1EA 12:19
PROVIDERS: ADMIT Obstetrics & Gynecology; ATTEND Obstetrics & Gynecology
DX: N39.3 Stress incontinence (female) (male) (principal); T83.24XA Erosion of graft of urinary organ, initial encounter; N81.10 Cystocele, unspecified; L72.3 Sebaceous cyst; E78.5 Hyperlipidemia, unspecified
CPT/HCPCS: 00860; 57240; 57287; 80048; 85025; 94150; C1771; G0378; J0131; J0690; J1100; J2250; J2370; J2405; J2710; J3010; J7120; J8501